=== PATIENT | female | born 1930 | race Caucasian/White ===

== ENCOUNTER → 2017-08-08 12:08 | Day surgery (SDC) | payer MEDICARE, BC ==
--- NOTE | 2017-07-29 22:34 | HP ---
CC: Dr. Mariam Wang * PREOPERATIVE HISTORY AND PHYSICAL: DATE OF ADMISSION: 08/08/17 This patient is scheduled for same-day surgery admission by Dr. Alberto on , 08/08/17. DATE OF PREOPERATIVE HISTORY AND PHYSICAL EXAMINATION: 07/29/17. ATTENDING SURGEON: Dr. Terrance Alberto * (dictated by Maame Hinton NP) CHIEF COMPLAINT: Right breast mass. HISTORY OF PRESENT ILLNESS: The patient is an 87-year-old female referred to Dr. Alberto from Dr. Mariam Wang for evaluation of a right breast mass. The patient states that she noticed the mass over the last couple of months. She has a history of right breast cancer in 2002 and underwent lumpectomy, but never had radiation or chemotherapy. She does not have mammograms as she does not agree to them. Dr. Alberto examined the patient and noted a 1 cm hard mass at the 9 o'clock position of the areola of the right breast. He discussed the findings with her and recommended a needle biopsy, but the patient declined the needle biopsy. She is agreeable to excision of the right breast mass and Dr. Alberto has scheduled her for that procedure as a same day surgery with local anesthesia and intravenous sedation. He described the nature of the surgical procedure, the rationale for the procedure, the relevant risks and benefits, and today I reviewed the typical postoperative care and recovery. The patient has had a chance to ask questions and stated that she understands the information and is satisfied with the answers given to her questions. She will sign surgical consent on the day of surgery. PAST MEDICAL HISTORY: Right breast cancer treated with lumpectomy in 2002, hypertension, mitral valve insufficiency, atrial fibrillation in 2010, none recently, mild sick sinus syndrome, type 2 diabetes, hyperthyroidism/goiter, Lyme disease and Shingles. PAST SURGICAL HISTORY: Right breast lumpectomy in 2002, hysterectomy, bladder suspension, umbilical hernia repair, left cataract extraction, right hip fracture and pinning. MEDICATIONS: 1. Vitamin B12 100 mcg daily. 2. Vitamin D3 10,000 units daily. 3. Magnesium 500 mg daily. 4. Cinnamon 500 mg with meals. 5. Pantothenic acid 500 mg daily. 6. Vitamin B complex 100 mg daily. 7. Metformin 500 mg p.o. b.i.d. and I have instructed the patient to hold metformin on 08/07/17. 8. Calcium and vitamin D3 bone health 1 daily. 9. Spirulina 500 mg p.o. daily. 10. Red yeast rice 600 mg daily. 11. Milk thistle 175 mg daily. 12. Turmeric 500 mg daily. 13. Gluten-Zyme 400 mg daily. 14. Digestive Gold 1 tablet daily. 15. Methimazole 5 mg one half tablet daily. 16. Glipizide ER 10 mg 2 tablets every morning and 1 tablet at night. 17. Ashwagandha supplement. 18. Ginkgo biloba b.i.d. 19. Pycnogenol complex daily. 20. White willow bark daily. 21. Chlorella daily. 22. [place] alvarez daily. 23. Collagen Ultra daily. 24. Lisinopril 2.5 mg daily and the patient currently is holding that stating that one of her supplements is specific for her hypertension. 25. [place] Alive 12 drops daily. ALLERGIES: CYMBALTA caused rapid heart rate, DOXYCYCLINE caused vomiting, GLUTEN, severe muscle weakness and rash. FAMILY HISTORY: No known anesthesia complications, bleeding tendencies, or clotting disorders. SOCIAL HISTORY: She is and her accompanied her to the visit, she has never been a smoker. She rarely consumes alcohol and denies the use of other substances. REVIEW OF SYSTEMS: Constitutional: No fevers, chills, excessive fatigue or weight loss. Endocrine: She is a type 2 diabetic and fingerstick in the morning typically is around 99; she is on medication for hyperthyroidism and goiter. Hematologic: No easy bruising or bleeding. She had blood transfusions many years ago associated with bladder surgery and some type of hospitalization for bowel blockage in her 20s. Breasts: As described in history of present illness. Respiratory: No dyspnea on exertion. No chronic cough. Cardiovascular: No anginal chest pain or palpitations. She saw Dr. Diaz on 06/06/16 and has a history of paroxysmal atrial fibrillation and sick sinus syndrome. The patient has not had episodes of atrial fibrillation since 2010. She has a mild sick sinus syndrome and declines a pacemaker; she has a history of mitral valve insufficiency; Dr. Diaz released her from his care to her primary care provider, Dr. Wang, and said he would be available if she has any chest pain or shortness of breath. Gastrointestinal: No nausea, vomiting, diarrhea, or chronic constipation. Genitourinary: No dysuria. Musculoskeletal : No current joint or back pain. Neurologic: No chronic headaches or blurred vision or areas of focal weakness or numbness. General: No previous anesthesia complications. No history of deep vein thrombosis or pulmonary embolism. PHYSICAL EXAMINATION GENERAL SURVEY: The patient is an 87-year-old female, well developed, well nourished, in no acute distress. VITAL SIGNS: Height 65 inches, weight 156 pounds, body mass index 26. Blood pressure 124/60, pulse 84 and regular, respiratory rate 18, temperature 97.7 tympanic. HEENT: Benign. NECK: Supple. No cervical lymphadenopathy. No supraclavicular lymphadenopathy. LUNGS: Breath sounds bilaterally clear and equal. HEART: Regular rate and rhythm. No murmurs or rubs appreciated. BREASTS: On today's examination, she will only allow examination of the right breast; the right breast has a scar in the inferior portion consistent with previous excision; there is a 1 cm hard mass at the 9 o'clock position of the areola. There is no nipple discharge. There is no obvious right axillary adenopathy. ABDOMEN: Soft and nondistended. PELVIC: Deferred. RECTAL: Deferred. EXTREMITIES: Warm without edema or skin ulceration. NEUROLOGIC: Alert and oriented x3. Steady gait. SKIN: Warm, dry, and intact. IMPRESSION: Right breast mass, subareolar. PLAN: Same-day surgery admission to Dr. Alberto's service on , 08/08/17 , for excision of right breast mass. BABATUNDE HINTON NP [id number]/[facility] #: [id number] DOMINICK
[~2017-08-08 12:08] MED LIST: Buffered Lidocaine 0.9% SYRIN* 5 ML/SYR SYRINGE INTRADERM ONE; Bupivacaine 0.25% SDV* 30 ML ONE; Bupivacaine 0.5% SDV PF* 10-30ML VIAL ONE; Dexamethasone IV* 4 MG/ML 1 ML (4 MG) ONE; Famotidine IV* 10 MG/ML 2 ML (20 mg) IV ONE; Famotidine IV* 10 MG/ML 2 ML (20 mg) ONE; KETAMINE HCL* 50 MG/ML 10 ML VIAL ONE; Ketorolac INJ* 30 MG/ML 1 ML VIAL ONE; Lidocaine 1% MPF wEPI 200,000* 30 ML SDV ONE; Lidocaine 2% PF * 5 ML VIAL ONE; Metoclopramide TAB* 10 MG ONE; Metoclopramide TAB* 10 MG PO ONE; Midazolam* 1 MG/ML 10 ML VIAL (10 MG) ONE; Midazolam* 1 MG/ML 2 ML VIAL (2 MG) ONE; Naloxone* 0.4 MG/ML 1 ML VIAL IV PRN; Ondansetron INJ* 2 MG/ML VIAL IV PRN; Ondansetron INJ* 2 MG/ML VIAL ONE; Propofol* 10 MG/ML 20 ML BTL IV PUSH ONE; ceFAZolin 2 GM PREMIX (*) 2 GM/50 ML BAG IVPB ONE; fentaNYL* 50 MCG/ML 2 ML VIAL (100 MCG VIAL) IV PRN; fentaNYL* 50 MCG/ML 2 ML VIAL (100 MCG VIAL) ONE
[2017-08-08 15:35] VITALS: BP 134/66
--- NOTE | 2017-08-09 11:25 | OP ---
CC: Dr. Alberto; Dr. Wang OPERATIVE REPORT: DATE OF OPERATION: 08/08/17 DATE OF : 32 SURGEON: Terrance Alberto MD IRISH MOSS BLEACHER: Maame Valdovinos NP ANESTHESIOLOGIST: Dr. Preston. ANESTHESIA: LMAC anesthesia. PRE-OP DIAGNOSIS: Right breast mass. POST-OP DIAGNOSIS: Right breast mass. OPERATIVE PROCEDURE: Excisional biopsy of right breast mass. DESCRIPTION OF PROCEDURE: The patient was supine on the operative table. After adequate intravenous sedation, compression stockings, Shannon Hugger warmer and intravenous antibiotics, the right breast wa s prepped with antiseptic and draped in a sterile fashion. Local infiltrative anesthesia was adminis tered and curvilinear incision was created along the lateral aspect of the areola on the right. The skin was somewhat undermined and then a piece of breast tissue approximately 4 x 4 x 3 cm incised was removed. It was marked with the usual localizing sutures and sent in formalin to pathologic evaluat ion. Hemostasis was obtained using electrocautery and the incision was closed with interrupted 3-0 V icryl, followed by 5-0 Vicryl for the skin, followed by Steri-Strips and a gauze dressing. She alexandria ated the procedure well, was awakened, and brought to Recovery in good condition. No complications. No drains. Pathologic specimen is right breast excision. Sponge and instrument counts correct. Es timated blood loss is less than 30 mL. [id number]/[facility] #: [id number]
== END | disposition home or self-care (01) ==
LOC: OR 12:08
PROVIDERS: ATTEND Surgery
DX: C50.111 Malignant neoplasm of central portion of right female breast (principal); Z85.3 Personal history of malignant neoplasm of breast; E11.9 Type 2 diabetes mellitus without complications; Z79.84 Long term (current) use of oral hypoglycemic drugs; I10 Essential (primary) hypertension; I34.0 Nonrheumatic mitral (valve) insufficiency; E03.9 Hypothyroidism, unspecified; I49.5 Sick sinus syndrome
CPT/HCPCS: 88307; 88360; A9270-GY; J0690; J1100; J1885; J2001; J2250; J2405; J2704; J3010

== ENCOUNTER 2018-01-14 15:31 | Emergency (ER) | payer MEDICARE, BC ==
[2018-01-14] MEDS ORDERED: NS 0.9% 1000 ML* 1,000 ML IV ONE (17:18)
[2018-01-14] MEDS ORDERED: Meclizine TAB* 12.5 MG PO ONE ×2 (17:18→21:05)
--- NOTE | 2018-01-14 17:24 | ED ---
Dizziness - HPI Summary HPI Summary: This is minna Flores documenting for attending Wagner Lee MD. This patient is an 87 year old F presenting to [facility] accompanied by a man and a woman with a chief complaint of elevated BP and worsening light-headed spinning dizziness that began 4 days ago. Pt states that she has had two fainting spells today, which is worse than it has been. Pt called her PCP office and they advised that she come to the ER. Patient reports right breast tenderness, a brown spot in her vision when walking, ecchymosis on her thigh, and some edema in her LE. Patient denies LUCERO, CP, speech changes, focal weakness or numbness, or abd pain. Pt states that her dizzy spells are worse when lying down, upon waking, and when turning her head. No PMHx CHF. FHx of cardiac disease. Pt has been eating and drinking normally. - History Of Current Complaint Chief Complaint: EDDizziness Stated Complaint: DIZZY/RT BREAST SORE Time Seen by Provider: 01/14/18 16:55 Hx Obtained From: Patient Onset/Duration: Still Present Timing: Frequency Of Episodes - 2 today, one for the last 3 days Severity Initially: Moderate Severity Currently: Mild Character: Head Spinning, Lightheaded, Dizzy Aggravating Factor(s): Position Change, Change In Head Position Associated Signs And Symptoms: Negative: Chest Pain, Fever, Inability to Walk, Slurred Speech - Allergies/Home Medications Allergies/Adverse Reactions: Allergies Allergy/AdvReac Type Severity Reaction Status Date / Time doxycycline Allergy Nausea and Verified 08/08/17 12:34 vomitting duloxetine Allergy Tachycardia Verified 08/08/17 12:34 GLUTEN Allergy Intermediate DIARRHEA, Uncoded 08/08/17 12:34 UNABLE TO WALK Home Medications: Home Medications Cyanocobalamin TAB* [Vitamin B12 TAB*] 100 mcg PO DAILY 01/14/18 [History Confirmed 01/14/18] Turmeric Root Extract [Ra Turmeric] 500 mg PO DAILY 01/14/18 [History Confirmed 01/14/18] PMH/Surg Hx/FS Hx/Imm Hx Endocrine/Hematology History: Reports: Hx Diabetes - DM II, Hx Thyroid Disease - ON MEDICATION FOR Cardiovascular History: Reports: Hx Valvular Heart Disease - MITRAL VALVE- LAST SEEN [place] [address] 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 - Cancer History Hx Chemotherapy: No - Surgical History Surgery Procedure, Year, and Place: BLADDER SUSPENSION, R BREAST LUMPECTOMY 2006 Hx Anesthesia Reactions: No Infectious Disease History: No Infectious Disease History: Denies: Traveled Outside the [place] in Last 30 Days - Family History Known Family History: Positive: Cardiac Disease - Social History Alcohol Use: Rare Substance Use Type: Reports: None Smoking Status (MU): Never Smoked Tobacco Review of Systems Negative: Fever Positive: Other - brown spot in vision when walking Negative: Chest Pain Negative: Abdominal Pain Positive: Edema - mild, LE, Other - right breast tenderness Positive: Bruising - thigh Negative: Headache, Weakness, Numbness, Slurred Speech All Other Systems Reviewed And Are Negative: Yes Physical Exam - Summary Physical Exam Summary: General: well-appearing, no pain distress Skin: warm, color reflects adequate perfusion, dry Head: normal Eyes: EOMI, VASILE ENT: Earwax in the left ear canal. Left, beating nystagmus. Neck: supple, nontender Respiratory: CTA, breath sounds present Cardiovascular: RRR Abdomen: soft, nontender Bowel: present Musculoskeletal: normal, strength/ROM intact Neurological: sensory/motor intact, A&O x3 Psychological: affect/mood appropriate GCS: 15 Triage Information Reviewed: Yes Vital Signs On Initial Exam: Initial Vitals Temp Pulse Resp BP Pulse Ox 98.4 F 73 18 161/61 100 01/14/18 15:34 01/14/18 15:34 01/14/18 15:34 01/14/18 15:34 01/14/18 15:34 Vital Signs Reviewed: Yes Diagnostics - Vital Signs Vital Signs Temp Pulse Resp BP Pulse Ox 01/14/18 17:00 57 98 01/14/18 16:45 55 163/78 97 01/14/18 16:14 59 178/72 97 01/14/18 15:34 98.4 F 73 18 161/61 100 - Laboratory Result Diagrams: 01/14/18 17:29 01/14/18 17:29 Lab Statement: Any lab studies that have been ordered have been reviewed, and results considered in the medical decision making process. - Radiology CXR Radiology Interpretation Completed By: Radiologist - NO ACTIVE DISEASE. ER Physician has reviewed this report - CT Brain CT Interpretation Completed By: Radiologist - NO ACUTE INTRACRANIAL FINDINGS ER Physician has reviewed this report. - EKG 17:57 Cardiac Rate: Bradycardia - 46 bpm EKG Rhythm: Sinus Bradycardia Ectopy: None EKG Interpretation: RBBB. Flipped T in 3. AVF. Similar to 07/29/17. Re-Evaluation - Re-Evaluation First Eval Re-Evaluation Time: 18:56 Comment: Pt is not currently dizzy, but has not gotten up. I will give her IV and food, then see how she feels when ambulating. Dizzy Course/Dx - Course Course Of Treatment: IMPROVED IN ED. DISCUSSED RESULTS WITH THE PATIENT AND FAMILY. NO FOCAL NEURO DEFICIT. ATE AND AMBULATED IN THE ED. F/U PMD; RETURN TO ED IF WORSE. - Diagnoses Provider Diagnoses: Vertigo, Dizziness Discharge - Sign-Out/Discharge Documenting (check all that apply): Patient Departure - Discharge Plan Condition: Stable Disposition: HOME Prescriptions: Meclizine HCl [Motion Sickness Relief] 25 mg PO Q6H PRN #15 tablet PRN Reason: Dizziness Patient Education Materials: Vertigo (ED), Dizziness (ED) Referrals: Mariam Wang MD [Primary Care Provider] - Additional Instructions: FOLLOW UP WITH YOUR DOCTOR. RETURN TO THE EMERGENCY DEPARTMENT FOR ANY WORSENING OF YOUR CONDITION; WEAKNESS , NUMBNESS, VISION CHANGES, YOU FEEL ILL OR QUESTIONS OR CONCERNS. - Billing Disposition and Condition Condition: STABLE Disposition: Home
[2018-01-14 17:39] LABS: ABS Basophils 0.1 10^3/ul (0-0.2); ABS Eosinophils 0.2 10^3/ul (0-0.6); ABS Lymphocytes 1.9 10^3/ul (1.0-4.8); ABS Monocytes 0.6 10^3/ul (0-0.8); ABS Neutrophils 5.5 10^3/ul (1.5-7.7); ABS Nucleated RBC 0 10^3/ul; Eosinophil % 2.8 % (0-6); Hematocrit 37 % (35-47); Hemoglobin 12.4 g/dl (12.0-16.0); Lymphocyte % 22.5 % (25-47); Mean Corpuscular HGB Conc 34 g/dl (31-36); Mean Corpuscular Hemoglobin 31 pg (27-31); Mean Corpuscular Volume 91 fL (80-97); Mean Platelet Volume 9.7 um3 (7.4-10.4); Nucleated Red Blood Cells % 0; Platelet Count 220 10^3/ul (150-450); Red Blood Count 4.05 10^6/ul (4.00-5.40); Red Cell Distribution Width 13 % (10.5-15); White Blood Count 8.4 10^3/ul (3.5-10.8)
[2018-01-14 17:48] LABS: INR 0.95 (0.77-1.02)
--- NOTE | 2018-01-14 18:00 | RAD ---
INDICATION: Dizziness for 4 days COMPARISON: None TECHNIQUE: Noncontrast axial source images were acquired from the skull base to the vertex. FINDINGS: Ventricles/sulci: The ventricles and cisterns are normal in size and configuration for age. Brain parenchyma: There is no focal parenchymal finding, evidence of intracranial mass, or intracranial mass effect. Intracranial hemorrhage:None. Extra-axial spaces: There are no abnormal extra axial fluid collections or evidence of extra-axial mass. Calvarium: There is no calvarial fracture or other calvarial abnormality. Scalp: There is no evidence of scalp or extracalvarial soft tissue abnormality. Paranasal sinuses/mastoid: The paranasal sinuses and mastoid air cells are clear. Other: None. IMPRESSION: NO ACUTE INTRACRANIAL FINDINGS
--- NOTE | 2018-01-14 18:10 | RAD ---
INDICATION: Dizziness COMPARISON: Chest x-ray October 23, 2013 TECHNIQUE: An AP portable view obtained at 1806 hours is submitted. FINDINGS: Bones/Soft Tissues: There are no acute bony findings. Cardiomediastinal: The cardiomediastinal silhouette is normal. Lungs: There are no infiltrates. Pleura: There are no pleural effusions. Other: None IMPRESSION: NO ACTIVE DISEASE.
[2018-01-14 21:06] VITALS: BP 177/65
[2018-01-14] MEDS ORDERED: Meclizine TAB* 12.5 MG ONE (21:08)
== END 2018-01-14 21:38 | disposition home or self-care (01) ==
LOC: ED 15:31
DX: R42 Dizziness and giddiness (principal); H53.8 Other visual disturbances; R60.0 Localized edema; N64.89 Other specified disorders of breast; R58 Hemorrhage, not elsewhere classified; Z82.49 Family history of ischemic heart disease and other diseases of the circulatory system; Z88.3 Allergy status to other anti-infective agents
CPT/HCPCS: 36415; 70450; 71045; 80053; 82550; 82553; 83605; 83690; 83735; 83880; 84443; 84484; 85025; 85610; 85730; 86140; 93005; 99284; A9270-GY

== ENCOUNTER 2018-03-19 07:06 | Day surgery (SDC) | payer MEDICARE, BC ==
[~2018-03-19 07:06] MED LIST changes: +Acetaminophen TAB* 325 MG PO PRN; -Bupivacaine 0.25% SDV* 30 ML ONE; -Bupivacaine 0.5% SDV PF* 10-30ML VIAL ONE; -Dexamethasone IV* 4 MG/ML 1 ML (4 MG) ONE; -Famotidine IV* 10 MG/ML 2 ML (20 mg) IV ONE; -Famotidine IV* 10 MG/ML 2 ML (20 mg) ONE; -KETAMINE HCL* 50 MG/ML 10 ML VIAL ONE; -Ketorolac INJ* 30 MG/ML 1 ML VIAL ONE; -Lidocaine 1% MPF wEPI 200,000* 30 ML SDV ONE; -Lidocaine 2% PF * 5 ML VIAL ONE; -Metoclopramide TAB* 10 MG ONE; -Metoclopramide TAB* 10 MG PO ONE; -Midazolam* 1 MG/ML 10 ML VIAL (10 MG) ONE; -Midazolam* 1 MG/ML 2 ML VIAL (2 MG) ONE; -Naloxone* 0.4 MG/ML 1 ML VIAL IV PRN; -Ondansetron INJ* 2 MG/ML VIAL IV PRN; -Ondansetron INJ* 2 MG/ML VIAL ONE; -Propofol* 10 MG/ML 20 ML BTL IV PUSH ONE; -ceFAZolin 2 GM PREMIX (*) 2 GM/50 ML BAG IVPB ONE; -fentaNYL* 50 MCG/ML 2 ML VIAL (100 MCG VIAL) IV PRN; -fentaNYL* 50 MCG/ML 2 ML VIAL (100 MCG VIAL) ONE
[2018-03-19] MEDS ORDERED: Midazolam* 1 MG/ML 2 ML VIAL (2 MG) ONE (08:05)
[2018-03-19 08:32] VITALS: BP 154/47
[2018-03-19] MEDS ORDERED: Phenylephrine 2.5% OPTH.SOL* 2 ML BTL ONE (09:55)
[2018-03-19] MEDS ORDERED: Cyclopentolate 1% OPTH.SOL* 2 ML BTL ONE (09:55)
[2018-03-19] MEDS ORDERED: Proparacaine 0.5% OPHTH.SOL* 15 ML BTL ONE (09:55)
[2018-03-19] MEDS ORDERED: Povidone Iodine 5% OPTH* 30 ML BTL ONE (09:55)
[2018-03-19] MEDS ORDERED: Lidocaine 2% EPI 1:200000 MPF*10-20 ML VIAL ONE (09:55)
[2018-03-19] MEDS ORDERED: Ketorolac 0.5% OPHTH (NF) 0.5 % 5 ML BTL ONE (09:55)
[2018-03-19] MEDS ORDERED: Lidocaine 1%* 5 ML VIAL ONE (09:55)
[2018-03-19] MEDS ORDERED: acetaZOLAMIDE TAB* 250 MG ONE (09:55)
[2018-03-19] MEDS ORDERED: Neomycin/Polymy/Dex OPTH.SUSP* MAXITROL 0.1% 5 ML ONE (09:55)
--- NOTE | 2018-03-19 18:26 | OP ---
DATE OF OPERATION: 03/19/18 [facility] DATE OF : 32 SURGEON: Edis Cornejo M.D. PREOPERATIVE DIAGNOSIS: Cataract, right eye. POSTOPERATIVE DIAGNOSIS: Cataract, right eye. OPERATIVE PROCEDURE: Extracapsular cataract extraction with intraocular lens implant, right eye. PROCEDURE: The patient was brought to the operating room after being given 1/2 % Alcaine with epinephrine drops in the preoperative area. The eye was prepped and draped in the usual sterile fashion. Sterile drape and eyelid speculum were placed. Again, topical 1/2% Alcaine with epinephrine was given. A paracentesis incision was made at the 9 o'clock position with the No.75 blade. Clear cornea incision 2.2 x 2.2-mm was created at the 12 o'clock position starting at the anterior limbus using the 2.2-mm keratome. The anterior chamber was irrigated with 0.4 mL of 1% non-preservative intracameral lidocaine and filled with DisCoVisc. A capsulorrhexis was completed using the cystotome and the Utrata forceps. Hydrodissection was performed with balanced salt solution. The lens nucleus was removed with the Phacoemulsification handpiece without incident. Cortex was removed with the irrigation-aspiration handpiece. The capsular bag was re-inflated using DisCoVisc and an SN60WF 19.5 implant was inserted with the shooter. Malyugin ring was used to dilate the pupil prior to capsulorrhexis because of a very small pupil. The irrigation-aspiration handpiece was used to remove all residual DisCoVisc. The eye was refilled with balanced salt solution and the wound checked and found to be watertight. Topical Maxitrol drops were given. INDICATION FOR COMPLEX CATARACT SURGERY: Iris abnormalities requiring pupil dilation device. [id number]/[facility] #: [id number] DOMINICK
== END 2018-03-19 08:33 | disposition home or self-care (01) ==
LOC: OREAST 07:06
PROVIDERS: ATTEND Specialist
DX: H25.11 Age-related nuclear cataract, right eye (principal); Q13.2 Other congenital malformations of iris; E11.3293 Type 2 diabetes mellitus with mild nonproliferative diabetic retinopathy without macular edema, bilateral; Z79.84 Long term (current) use of oral hypoglycemic drugs; E05.90 Thyrotoxicosis, unspecified without thyrotoxic crisis or storm; R07.9 Chest pain, unspecified
CPT/HCPCS: A9270-GY; J2250; V2632

== ENCOUNTER 2018-07-02 19:23 | Emergency (ER) | payer MEDICARE, BC ==
--- NOTE | 2018-07-02 19:35 | ED ---
Palpitations / Dysrhythmia - HPI Summary HPI Summary: An 88 y/o F presents to ED with elevated pulse (140bpm) onset approx 1530. Onset occurred while patient was shopping at [employer]. She states feeling well otherwise earlier in the day. She denies CP, SOB. Associated sx: mild lightheadedness. Aggravating factors: walking up/down stairs. She denies PMHx of CHF, angina, COPD. Non-smoker. - History of Current Complaint Chief Complaint: EDDysrhythmPalp Hx Obtained From: Patient, Family/Shower Screen Installer - Onset/Duration: Sudden Onset, Lasting Hours, Still Present Timing: Constant Severity Initially: Moderate Severity Currently: Moderate Character: Fast Aggravating: Exertion Alleviating: Nothing Associated Signs & Symptoms: Lightheadedness - Allergy/Home Medications Allergies/Adverse Reactions: Allergies Allergy/AdvReac Type Severity Reaction Status Date / Time doxycycline Allergy Severe Nausea and Verified 03/19/18 07:30 vomitting duloxetine Allergy Severe Tachycardia Verified 03/19/18 07:30 lactose Allergy Severe Anaphylatic Verified 03/19/18 07:30 Shock GLUTEN Allergy Intermediate DIARRHEA, Uncoded 03/19/18 07:30 UNABLE TO WALK PMH/Surg Hx/FS Hx/Imm Hx Previously Healthy: No Endocrine/Hematology History: Reports: Hx Diabetes - DM II, Hx Thyroid Disease - ON MEDICATION FOR Cardiovascular History: Reports: Hx Valvular Heart Disease - MITRAL VALVE- LAST SEEN [place] [address] CARTAGENA, Other Cardiovascular Problems/Disorders - HX OF A- FIB Denies: Hx Pacemaker/ICD Respiratory History: Reports: Other Respiratory Problems/Disorders - SENSITIVE TO CIGARETTE SMOKE GI History: Reports: Other GI Disorders - HX OF CONSTIPATION Musculoskeletal History: Reports: Hx Arthritis - OSTEOPOROSIS- ON VITAMINS, Hx Osteoporosis Sensory History: Reports: Hx Cataracts - r eye, Hx Contacts or Glasses - GLASSES Denies: Hx Deafness, Hx Hearing Aid Opthamlomology History: Reports: Hx Cataracts - r eye, Hx Contacts or Glasses - GLASSES Neurological History: Reports: Other Neuro Impairments/Disorders - 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 - Cancer History Hx Chemotherapy: Yes - Surgical History Surgery Procedure, Year, and Place: BLADDER SUSPENSION, R BREAST LUMPECTOMY 2005. PARTIAL HYSTERECTOMY. HERNIA REPAIR. RIGHT BREAST BIOPSY 08/2017. LEFT EYE CATARACT SURGERY WITH IOL. RIGHT ORIF 2013. RECTOCELE 1960'S. CYST REMOVED FROM GALLBLADDER WITH REMOVAL OF APPENDIX Hx Anesthesia Reactions: No Infectious Disease History: Denies: Traveled Outside the [place] in Last 30 Days - Family History Known Family History: Positive: Cardiac Disease - Social History Occupation: Retired Lives: With Family Alcohol Use: Weekly Alcohol Amount: MAYBE ONCE A WEEK Substance Use Type: Reports: None Smoking Status (MU): Never Smoked Tobacco Review of Systems Positive: Other - elevated pulse. Negative: Chest Pain Negative: Shortness Of Breath Neurological: Other - mild lightheadedness All Other Systems Reviewed And Are Negative: Yes Physical Exam - Summary Physical Exam Summary: Appearance: Well-appearing, Well-nourished, lying in bed comfortably Skin: Warm, dry, no obvious rash Eyes: sclera anicteric, no conjunctival pallor ENT: mucous membranes moist, pharynx appears normal Neck: Supple, nontender Respiratory: Clear to auscultation, no signs of respiratory distress Cardiovascular: Tachycardic. Normal S1, S2. No murmurs. Normal distal pulses in tibial and radial bilaterally. Abdomen: Soft, nontender, normal active bowel sounds present Musculoskeletal: Normal, Strength/ROM Intact Neurological: A&Ox3, awake and alert, mentation is normal, speech is fluent and appropriate Psychiatric: affect is normal, does not appear anxious or depressed Triage Information Reviewed: Yes Vital Signs Reviewed: Yes Diagnostics - Laboratory Result Diagrams: 07/02/18 19:39 07/02/18 19:39 Lab Statement: Any lab studies that have been ordered have been reviewed, and results considered in the medical decision making process. - Radiology CXR Radiology Interpretation Completed By: ED Physician Summary of Radiographic Findings: NAD. - EKG 1999 Cardiac Rate: NL - 90 bpm EKG Rhythm: Sinus Rhythm Summary of EKG Findings: Prolonged IA interval, RBBB. 1926 Cardiac Rate: Tachycardia - 123 bpm Summary of EKG Findings: Junctional tachy at 123 bpm. No P-waves. ST elevation is similar to previous EKG on 01/14/18. Re-Evaluation - Re-Evaluation 1 Re-Evaluation Time: 20:00 Change: Improved Comment: Pt's HR has gone down. She is feeling improved. 2 Re-Evaluation Time: 20:36 Change: Improved Comment: Pt is still improved, spoke with . Course/Dx - Course Course Of Treatment: An 88 y/o F presents with elevated pulse (140bpm) and mild lightheadedness onset approx 1530 while shopping. An EKG at 192 reveals junctional tachycardia at 123bpm, no p-waves, ST elev appears similar to previous EKG on 01/14/18. A repeat EKG at 1999 reveals NSR at 90bpm with prolonged IA interval and RBBB. CXR and labs are unremarkable. Spoke with Dr. Cahvarria cardio. Pt is feeling improved. Will D/C home. - Diagnoses Provider Diagnoses: AV roberto carlos re-entry tachycardia - Physician Notifications Discussed Care Of Patient With: Lizeth Chavarria - Cardio Time Discussed With Above Provider: 20:08 Instructed by Provider To: Other - Discussed case, suggestive of a transient phenomenom. If pt feeling better, OK to DC home. Discharge - Sign-Out/Discharge Documenting (check all that apply): Patient Departure - D/C - Discharge Plan Condition: Improved Disposition: HOME Patient Education Materials: Atrial Tachycardia (ED) Referrals: Lizeth Chavarria MD [Medical Doctor] - As Soon As Possible Additional Instructions: I suspect your symptoms were related to a transient disturbance in the heart rhythm. This is not a heart attack, it is a problem with the heart's electrical wiring so to speak. It is not what we call a malignant arrhythmia, one that can lead to passing out, heart attack or . Nonetheless it can cause symptoms and should be evaluated further. Your heart appears to have revertyed back to a normal rhythm at present. - Billing Disposition and Condition Condition: IMPROVED Disposition: Home - Attestation Statements Document Initiated by Angela: Yes Documenting Scribe: Sonja Soto Provider For Whom Angela is Documenting (Include Credential): Dr. Jin Hutchinson MD Scribe Attestation: I, Sonja Soto scribed for Dr. Jin Hutchinson MD on 07/03/18 at 0110. Scribe Documentation Reviewed: Yes Provider Attestation: The documentation as recorded by the Sonja buitrago accurately reflects the service I personally performed and the decisions made by me, Dr. Jin Hutchinson MD Status of Scribe Document: Viewed
[2018-07-02] MEDS ORDERED: NS 0.9% 1000 ML* 1,000 ML IV ONE (19:40)
[2018-07-02 19:48] LABS: ABS Basophils 0.1 10^3/ul (0-0.2); ABS Eosinophils 0.2 10^3/ul (0-0.6); ABS Lymphocytes 2.5 10^3/ul (1.0-4.8); ABS Monocytes 0.7 10^3/ul (0-0.8); ABS Neutrophils 9.6 10^3/ul (1.5-7.7); ABS Nucleated RBC 0 10^3/ul; Eosinophil % 1.2 %; Hematocrit 41 % (35-47); Hemoglobin 13.5 g/dl (12.0-16.0); Lymphocyte % 18.9 %; Mean Corpuscular HGB Conc 33 g/dl (31-36); Mean Corpuscular Hemoglobin 30 pg (27-31); Mean Corpuscular Volume 92 fL (80-97); Mean Platelet Volume 10.1 fL (7.4-10.4); Nucleated Red Blood Cells % 0; Platelet Count 280 10^3/ul (150-450); Red Blood Count 4.49 10^6/ul (4.00-5.40); Red Cell Distribution Width 14 % (10.5-15)
[2018-07-02 20:06] LABS: Albumin 4.1 g/dL (3.2-5.2); Albumin/Globulin Ratio 1.2 (1-3); Calcium 9.9 mg/dL (8.6-10.3); EGFR Non-African American 40.5 (>60); Globulin 3.4 g/dL (2-4); Magnesium 1.6 mg/dL (1.9-2.7); Potassium 4.9 mmol/L (3.5-5.0); Total Bilirubin 0.3 mg/dL (0.2-1.0); Total Protein 7.5 g/dL (6.4-8.9)
[2018-07-02 20:47] LABS: TSH (Thyroid Stimulating Horm) 1.46 mcIU/mL (0.34-5.60)
[2018-07-02 20:54] LABS: Urine Appearance Cloudy; Urine Bacteria Absent (Absent); Urine Bilirubin Negative (Negative); Urine Blood Negative (Negative); Urine Color Yellow; Urine Glucose 2+(150 mg/dL) (Negative); Urine Ketones Trace (Negative); Urine Nitrite Negative (Negative); Urine Protein Negative (Negative); Urine Red Blood Cell Trace(0-2/hpf) (Absent); Urine Specific Gravity 1.006 (1.010-1.030); Urine Urobilinogen Negative (Negative); Urine White Blood Cell 2+(11-20/hpf) (Absent)
[2018-07-02 21:07] VITALS: BP 148/81
== END 2018-07-02 21:08 | disposition home or self-care (01) ==
LOC: ED 19:23
DX: I47.1 Supraventricular tachycardia (principal); I45.10 Unspecified right bundle-branch block; R42 Dizziness and giddiness; E07.9 Disorder of thyroid, unspecified; I48.91 Unspecified atrial fibrillation; Z88.1 Allergy status to other antibiotic agents
CPT/HCPCS: 36415; 71045; 80053; 81003; 81015; 83735; 84443; 84484; 85025; 87086; 93005; 96360; 99283